=== PATIENT | female | born 1995 | race Caucasian/White ===

== ENCOUNTER → 2020-12-27 16:00 | Outpatient (BNVA) | payer BC, MEDICAID, SELFPAY | PROVIDERS: Visit Provider Obstetrics & Gynecology | DX: Z34.01 Encounter for supervision of normal first pregnancy, first trimester (principal) | CPT/HCPCS: 80307; 84315; 85027; 86592; 86762; 86787; 86803; 86850; 86900; 87086; 87340; 87389; 87806 ==

== ENCOUNTER → 2021-01-02 08:45 | Outpatient (BNVA) | payer BC, MEDICAID, SELFPAY | PROVIDERS: Visit Provider Obstetrics & Gynecology | DX: Z34.01 Encounter for supervision of normal first pregnancy, first trimester (principal); Z12.4 Encounter for screening for malignant neoplasm of cervix | CPT/HCPCS: 84315; 85027; 87491; 87591; 88175 ==

== ENCOUNTER → 2021-04-24 10:14 | Outpatient (BNVA) | payer BC, MEDICAID, SELFPAY | PROVIDERS: Visit Provider Obstetrics & Gynecology | DX: Z34.01 Encounter for supervision of normal first pregnancy, first trimester (principal) | CPT/HCPCS: 82950; 84315; 85027 ==

== ENCOUNTER → 2021-06-20 11:51 | Outpatient (BNVA) | payer BC, MEDICAID, SELFPAY | PROVIDERS: Visit Provider Obstetrics & Gynecology | DX: Z34.01 Encounter for supervision of normal first pregnancy, first trimester (principal) | CPT/HCPCS: 84315; 87081 ==

== ENCOUNTER 2021-07-09 03:41 | Inpatient (IN) | payer BC, MEDICAID, SELFPAY ==
[2021-07-09] VITALS (36 sets, daily range): BP systolic 112–148; BP diastolic 61–92; PULSE 54–99; RESP 16–18; TEMP 35.8–37; BMI 30.3
[2021-07-09] MEDS: lactated ringers 1,000 ML 999 ML IV (03:15)
[2021-07-09 03:33] LABS: Basophils % 0.3 %; Eosinophils # 0.1 10^3/uL (0.0-0.8); Eosinophils % 0.5 %; Hematocrit 37.9 % (37.0-47.0); Hemoglobin 12.7 g/dL (11.5-15.3); Lymphocytes # 2.3 10^3/uL (0.8-4.8); Lymphocytes % 16.5 %; Mean Corpuscular HGB Conc 33.5 g/dL (30.0-36.0); Mean Corpuscular Volume 92.4 fl (81-99); Mean Platelet Volume 10.5 fL (7.4-10.4); Monocytes # 0.7 10^3/uL (0.2-0.9); Monocytes % 5.2 %; Neutrophils # 10.56 10^3/uL (1.8-7.7); Neutrophils % 75.9 %; Nucleated Red Blood Cells % 0 %; Platelet Count 275 10^3/cmm (130-400); White Blood Count 13.9 10^3/uL (4.0-10.0)
[2021-07-09] MEDS: dextrose 5%-lactated ringers 1,000 ML 125 ML IV (03:58)
[2021-07-09] MEDS: lidocaine 2% INJ 20 mL INJECTION (04:45)
[2021-07-09] MEDS: oxytocin 30 UNIT/500 ML BAG 600 UNIT IV (04:52)
[2021-07-09] MEDS: fentaNYL 50 mcg/mL INJ 2mL IVP (04:55)
--- NOTE | 2021-07-09 05:12 | PM.OPHPUD ---
Labor & Delivery H&P Update Date of Procedure: July 09, 2021 Date H&P Performed: 07/04/21 H&P update information: I have reviewed H&P completed within last 30 days, I have examined patient prior to procedure and Changes to prior documentation as noted here Changes to previous documentation: The patient presented in active labor. cervix 5/100/0 with possible SROM earlier in the evening Admission Diagnosis: iup @ 38 weeks 6 days
--- NOTE | 2021-07-09 05:14 | PM.DELIVERY ---
Delivery Note: Date of delivery: July 09, 2021 Pre-delivery diagnoses: iup @ 38 weeks 6 days Post-delivery diagnoses: same- delivered Procedure: Op report anesthesia: None Delivering Physician: serjio Estimated blood loss (mL): 20 Findings: term male in the cephalic presentation Pre-Delivery Course: The patient presented in active labor. She intended to get an epidural, however, the labor progressed quickly and she had complete cervical dilation. She thought that she might have had SROM earlier in the evening while taking a bath. This was confirmed at complete cervical dilation Delivery: The patient had complete cervical dilation and began to push. The head delivered in the DEO position over a midline episiotomy under no anesthesia. The nose and mouth were bulb suctioned. The shoulders and body delivered atraumatically. The baby was placed onto the mother's abdomen. The cord was clamped and cut. Cord blood was obtained. The placenta delivered spontaneously. It was inspected and found to be intact. Inspection of the perineum revealed no extension of the episiotomy. The episiotomy was repaired in the usual fashion in 1 continuous stitch. Estimated blood loss 20 mL. Apgars on baby were 8 at 1 minute and 9 at 5 minutes. Weight of baby is 7 pounds 10 ounces. Mother and baby were stable post delivery. Coding Level of Care Code Acute Chip Frier for Berna Bryant
[2021-07-09] MEDS: docusate sodium 100 mg Capsule PO ×2 (08:57→19:05)
[2021-07-09] MEDS: benzocaine-menthol 78 gm Canister 1 SPRAY TOPICAL (08:58)
[2021-07-09] MEDS: lanolin oint 7 gm 1 APPLIC TOPICAL (08:58)
[2021-07-09] MEDS: prenatal vitamin Capsule 1 CAP PO (08:58)
[2021-07-09] MEDS: ibuprofen 800 mg tablet PO ×3 (08:58→22:08)
[2021-07-09 17:09] LABS: Hematocrit 33.3 % (37.0-47.0); Hemoglobin 11.5 g/dL (11.5-15.3); Mean Corpuscular HGB Conc 34.5 g/dL (30.0-36.0); Mean Corpuscular Hemoglobin 31.7 pg (28.0-34.0); Mean Corpuscular Volume 91.7 fl (81-99); Platelet Count 233 10^3/cmm (130-400); Red Blood Count 3.63 10^6/uL (4.1-5.3); Red Cell Distribution Width 13.2 % (12.1-15.1); White Blood Count 14.3 10^3/uL (4.0-10.0)
--- NOTE | 2021-07-09 18:40 | PC.NURSE ---
Sitz Bath Portable sitz bath given to pt upon request. Pt instructed on how to use it. Written instructions also given.
[2021-07-10] MEDS: docusate sodium 100 mg Capsule PO (10:43)
[2021-07-10] MEDS: ibuprofen 800 mg tablet PO (10:44)
[2021-07-10] MEDS: prenatal vitamin Capsule 1 CAP PO (10:44)
--- NOTE | 2021-07-10 12:36 | P.DS_ITS ---
Discharge Providers Date of Admission: 07/09/21 03:41 Date of Discharge: July 10, 2021 Attending Provider at Admission: Mary Ann Elizondo MD Attending Provider at Discharge: Mary Ann Elizondo MD Diagnoses at Discharge Discharge Diagnosis (1) state: Status: Acute Reason for Visit Reason for Visit: Contractions Hospital Course Hospital Course The patient was admitted in active labor. she had spontaneous deliver of a term . She did well and was read for discharge on day #1 Physical Exam Narrative: EXAM NARRATIVE: The patient is doing well this morning. No conc erns Const: COMMON NORMALS: no acute distress, average body habitus, patient oriented x3, no limitations, healthy appearing, alert and well nourished GENERAL APPEARANCE: cooperative, comfortable, well kempt and well developed ORIENTATION/CONSCIOUSNESS: Yes awake, Yes oriented to person, Yes oriented to place and Yes oriented to time Resp: COMMON NORMALS: normal respiratory effort EFFORT & INSPECTION: Yes able to speak in complete sentences GI: COMMON NORMALS: Soft to palpation and non-tender PALPATION: Yes Soft to palpation Extremity: COMMON NORMALS: no calf tenderness Neuro: COMMON NORMALS: patient oriented x3 SENSORIUM/ORIENTATION: Yes alert, Yes oriented to person, Yes oriented to place and Yes oriented to time Psych: APPEARANCE: Yes well kempt Discharge Data Data Completed and Pending: Labs from last 24 hours 07/09/21 16:45 WBC 14.3 H RBC 3.63 L Hgb 11.5 Hct 33.3 L MCV 91.7 MCH 31.7 MCHC 34.5 RDW 13.2 Plt Count 233 MPV 11.0 H Vitals: Last Vital Signs Temp 98.4 F 07/09/21 19:00 Pulse 90 07/09/21 22:11 Resp 16 07/09/21 19:00 BP 119/76 07/09/21 22:11 Discharge Plan Discharge Patient Disposition: Home Condition: Stable Prescriptions: Continued loratadine [Claritin] 10 mg tablet 10 mg PO DAILY RF: 0 prenat.vits,leo,lmo-satw-oltuf Tablet 1 tab PO DAILY RF: 0 Discharge Orders: Discharge Order (Routine); Ordered 07/10/21 Ordered By: Mary Ann Elizondo Patient Instructions: Depression (DC), Bleeding (DC), Preeclampsia and Eclampsia After Delivery (GEN), OB Discharge Report, OB Food/Drug Interaction Guide, Opioid Safety, OB Home Care, OB Vaginal Deliveries - [facility] Discharge Attestations Time Spent in Discharge Care*: less than 30 min Quality Metrics Clinical Quality Measures During this hospital stay, did patient experience: None Coding Level of Care Code Acute Chg FW DC note Diagnoses state Z39.2
[2021-07-10 13:08] VITALS: BP 117/76; PULSE 90
[2021-07-10 13:09] VITALS: TEMP 36.6
[2021-07-10 13:10] VITALS: BP 117/76; PULSE 90; RESP 16; TEMP 36.6
== END 2021-07-10 13:15 | disposition home or self-care (01) | DRG 807 ==
LOC: OPOB 03:45 → OBGYN 03:45
PROVIDERS: Admitting Provider Obstetrics & Gynecology; Visit Provider Obstetrics & Gynecology
DX: O80 Encounter for full-term uncomplicated delivery (principal); Z37.0 Single live birth; Z3A.38 38 weeks gestation of pregnancy; Z87.891 Personal history of nicotine dependence
CPT/HCPCS: 36415; 59025; 59409; 85025; 85027; 99211; J3010

== ENCOUNTER 2024-10-14 18:12 | Emergency (ER) | payer MEDICAID, SELFPAY ==
[2024-10-14 18:17] VITALS: BP 122/79; PULSE 95; RESP 14; TEMP 37.7; O2SAT 98; BMI 25.8
[2024-10-14 19:21] LABS: Basophils % 0.3 %; Eosinophils # 0.1 10^3/uL (0.0-0.8); Eosinophils % 0.8 %; Hematocrit 39.7 % (36-47); Lymphocytes # 1.5 10^3/uL (0.8-4.8); Lymphocytes % 25.7 %; Mean Corpuscular HGB Conc 33.2 g/dL (30-55); Mean Corpuscular Hemoglobin 30.8 pg (27-33); Mean Corpuscular Volume 92.5 fl (85-98); Mean Platelet Volume 9.1 fL (7.4-10.4); Monocytes # 0.5 10^3/uL (0.2-0.9); Monocytes % 8.7 %; Neutrophils # 3.81 10^3/uL (1.8-7.7); Neutrophils % 64.2 %; Nucleated Red Blood Cells % 0 %; Platelet Count 304 10^3/cmm (157-399); Red Blood Count 4.29 10^6/uL (3.85-5.65); Red Cell Distribution Width 12.2 % (12.1-15.1); White Blood Count 5.95 10^3/uL (3.29-11.43)
[2024-10-14 19:30] VITALS: BP 117/77; PULSE 86; O2SAT 100
[2024-10-14 19:37] LABS: Bilirubin Urine Negative (Negative); Blood Urine 2+ (Negative); Glucose Urine UA Negative (Normal); Ketones Urine 1+ (Negative); Leukocyte Esterase Urine Negative (Negative); Nitrate Urine Negative (Negative); Protein Urine Negative (Negative); Specific Gravity, Urine 1.014 (1.005-1.030); Urine Appearance Clear (CLEAR); Urine Color Yellow (Yellow); pH Urine 6.5 (5-7)
[2024-10-14 19:42] LABS: Add Urine Microscopic? YES; Bacteria Urine None Seen /hpf; Hyaline Casts Urine 0-4 /lpf; Squamous Epithelial Cell Urine 0-5 /hpf (0-5); WBC Urine 0-5 /hpf (0-5)
[2024-10-14 19:47] LABS: Add Urine Culture? Yes
[2024-10-14 19:48] LABS: Alanine Aminotransferase 11 U/L (0-33); Albumin Level 4.4 g/dL (3.5-5.2); Alkaline Phosphatase 158 U/L (35-105); Anion Gap 16.1 (5-19); Aspartate Amino Transferase 14 U/L (0-32); Blood Urea Nitrogen 10 mg/dL (6-20); Calcium 9.4 mg/dL (8.5-10.5); Carbon Dioxide 25 mmol/L (22-29); Chloride 99 mmol/L (98-107); Creatinine Clr Calc Pharmacy 107.7394; Globulin 3.6 g/dL (1.3-4.6); Glucose 86 mg/dL (65-115); Osmolality Calculated 280 mOsm/kg (285-295); Potassium 4.1 mmol/L (3.5-5.1); Sodium 136 mmol/L (136-145); Total Bilirubin 0.2 mg/dL (0.15-1.2)
[2024-10-14 20:02] VITALS: BP 118/75; PULSE 95; O2SAT 97
--- NOTE | 2024-10-14 20:08 | ED_ITS ---
HPI - Female Genitourinary 2 General: Chief complaint: Vaginal Bleeding Stated complaint: cramping spotting, early Time Seen by Provider: 10/14/24 18:44 History of Present Illness: Patient presents to the ER with complaints of vaginal spotting, cramping going on since last night. Patient does believe she is somewhere in the neighborhood of 4 to 8 weeks . Patient also had low-grade fever. Patient is no other complaints at this time. Related Data Previous Rx's Medication Instructions Recorded Sprintec (28) 0.25 mg-35 mcg 1 tab PO DAILY #56 tabs 11/20/21 tablet (norgestimate-ethinyl estradiol) Allergies Allergy/AdvReac Type Severity Reaction Status Date / Time No Known Allergies Allergy Verified 10/14/24 18:22 Review of Systems 2 General: Reports: 10 or more systems reviewed and unremarkable except in HPI and below PFSH ED 2 PFSH: Medical History No pertinent past medical history Denies diabetes, asthma, hypertension, seizures, DVT/PE PCP: Marta Lopez Surgical History No history of previous surgery Family History Father Hypertension Denies family history of Colon cancer Ovarian cancer Diabetes Heart disease Hypercholesteremia Breast cancer Uterine cancer Thyroid disease Stroke Physical Exam 2 Const: COMMON NORMALS: no acute distress, average body habitus, patient oriented x3, no limitations, healthy appearing, alert and well nourished HENMT: COMMON NORMALS: normocephalic, atraumatic, hearing grossly normal bilaterally, external ears normal, Normal external nose present and moist oral mucous membranes HEAD & SCALP: normocephalic and atraumatic NOSE: Normal external nose present EXTERNAL EAR: Yes external ears normal Neck/C-Spine: COMMON NORMALS: no JVD Chest: COMMONS NORMALS: normal inspection of the chest and normal palpation of entire chest wall Resp: COMMON NORMALS: normal respiratory effort, No retractions, No use of accessory muscles and clear to auscultation bilaterally AUSCULTATION: clear to auscultation bilaterally Cardio: COMMON NORMALS: no JVD, regular rate, regular rhythm, S1 normal heart sound present, S2 normal heart sound present, No gallops present (Cardio), No clicks present (Cardio), No murmurs present (Cardio) and No rub (Cardio) R ATE: regular rate RHYTHM: regular rhythm HEART SOUNDS: S1 normal heart sound present and S2 normal heart sound present GI: COMMON NORMALS: Normal to inspection, nondistended, normoactive bowel sounds present, Soft to palpation, non-tender, No hepatosplenomegaly present and no masses PALPATION: Yes Soft to palpation and Yes No hepatosplenomegaly present Neuro: COMMON NORMALS: patient oriented x3 SENSORIUM/ORIENTATION: Yes alert Course 2 Vital Signs: Vital signs: Vital Signs Temperature 99.9 F H 10/14/24 18:17 Pulse Rate 84 10/14/24 20:47 Respiratory Rate 14 10/14/24 18:17 Blood Pressure 116/81 10/14/24 20:47 Pulse Oximetry 97 10/14/24 20:47 Oxygen Delivery Me thod Room Air 10/14/24 18:17 MDM - Female Medical Decision Making OB ultrasound nondiagnostic, lab work unremarkable, quant BG 499, patient was instructed to follow-up for repeat blood draw in 48 to 72 hours. Medical Records I reviewed the patient's medical records. Lab Data I reviewed the patient's lab results. 10/14/24 19:07 10/14/24 19:07 Radiology Impressions Obstetrics Ultrasound 10/14/24 20:33 IMPRESSION: No definitive intrauterine gestational sac/ identified at this time. In the setting of a positive beta-hCG examination this may represent a that is too early to visualize or incorrect dating. Continued serial beta HCGs and ultrasounds are recommended. Laboratory Results WBC 5.95 10^3/uL (3.29-11.43) 10/14/24 19:07 RBC 4.29 10^6/uL (3.85-5.65) 10/14/24 19:07 Hgb 13.20 g/dL (11.27-16.99) 10/14/24 19:07 Hct 39.7 % (36-47) 10/14/24 19:07 MCV 92.5 fl (85-98) 10/14/24 19:07 MCH 30.8 pg (27-33) 10/14/24 19:07 MCHC 33.2 g/dL (30-55) 10/14/24 19:07 RDW 12.2 % (12.1-15.1) 10/14/24 19:07 Plt Count 304 10^3/cmm (157-399) 10/14/24 19:07 MPV 9.1 fL (7.4-10.4) 10/14/24 19:07 Neut % (Auto) 64.2 % 10/14/24 19:07 Lymph % (Auto) 25.7 % 10/14/24 19:07 [place] % (Auto) 8.7 % 10/14/24 19:07 Eos % (Auto) 0.8 % 10/14/24 19:07 Baso % (Auto) 0.3 % 10/14/24 19:07 Neut # (Auto) 3.81 10^3/uL (1.8-7.7) 10/14/24 19:07 Lymph # (Auto) 1.5 10^3/uL (0.8-4.8) 10/14/24 19:07 [place] # (Auto) 0.5 10^3/uL (0.2-0.9) 10/14/24 19:07 Eos # (Auto) 0.1 10^3/uL (0.0-0.8) 10/14/24 19:07 Baso # (Auto) 0.0 10^3/uL (0.0-0.1) 10/14/24 19:07 Nucleated RBC % (auto) 0 % 10/14/24 19:07 Nucleated RBCs # 0.0 /100WBC 10/14/24 19:07 Sodium 136 mmol/L (136-145) 10/14/24 19:07 Potassium 4.1 mmol/L (3.5-5.1) 10/14/24 19:07 Chloride 99 mmol/L (98-107) 10/14/24 19:07 Carbon Dioxide 25 mmol/L (22-29) 10/14/24 19:07 Anion Gap 16.1 (5-19) 10/14/24 19:07 BUN 10 mg/dL (6-20) 10/14/24 19:07 Creatinine 0.8 mg/dL (0.5-0.9) 10/14/24 19:07 GFR Calculation 86.0 mL/min (90-130) L 10/14/24 19:07 Glucose 86 mg/dL (65-115) 10/14/24 19:07 Calculated Osmolality 280 mOsm/kg (285-295) L 10/14/24 19:07 Calcium 9.4 mg/dL (8.5-10.5) 10/14/24 19:07 Total Bilirubin 0.2 mg/dL (0.15-1.2) 10/14/24 19:07 AST 14 U/L (0-32) 10/14/24 19:07 ALT 11 U/L (0-33) 10/14/24 19:07 Alkaline Phosphatase 158 U/L (35-105) H 10/14/24 19:07 Total Protein 8.0 g/dL (6.6-8.7) 10/14/24 19: Albumin 4.4 g/dL (3.5-5.2) 10/14/24 19:07 Globulin 3.6 g/dL (1.3-4.6) 10/14/24 19:07 Ser , Semi-Qnt 499.90 mIU/mL 10/14/24 19: Urine Color Yellow (Yellow) 10/14/24: Urine Appearance Clear (CLEAR) 10/14/24: Urine pH 6.5 (5-7) 10/14/24: Ur Specific [place] 1.014 (1.005-1.030) 10/14/24: Urine Protein Negative (Negative) 10/14/24: Urine Glucose (UA) Negative (Normal) 10/14/24: Urine Ketones 1+ (Negative) H 10/14/24: Urine Blood 2+ (Negative) A 10/14/24: Urine Nitrate Negative (Negative) 10/14/24: Urine Bilirubin Negative (Negative) 10/14/24: Urine Urobilinogen 1.0 mg/dL (Negative) 10/14/24: Ur Leukocyte Esterase Negative (Negative) 10/14/24 19: Urine RBC 11-20 /hpf (0-2) H 10/14/24 19: Urine WBC 0-5 /hpf (0-5) 10/14/24: Ur Squamous Epith Cells 0-5 /hpf (0-5) 10/14/24 19:29 Amorphous Sediment Not Reportable 10/14/24 19:29 Urine Bacteria None seen /hpf (NONE) 10/14/24 19:29 Hyaline Casts 0-4 /lpf H 10/14/24 19:29 All radiology interpretation(s) finalized by discharge Discharge Plan Discharge Patient Disposition: Home Clinical Impression: Vaginal bleeding Qualifiers: Weeks of gestation: less than 8 weeks Qualified Code(s): Z3A.01 - Less than 8 weeks gestation of Condition: Stable Prescriptions: No Action norgestimate-ethinyl estradiol [Sprintec (28)] 0.25-35 mg-mcg tablet 1 tab PO DAILY Qty: 56 4RF Discharge Orders: Discharge ED (Routine); Ordered 10/14/24 Ordered By: Iain Harrison Patient Instructions: (ED) Activity Restrictions/Additional Instructions: Your quantitative beta-hCG in the ER was 499. Please follow-up and have this redrawn in 48 to 72 hours as it should increase with a good . The ultrasound was nondiagnostic which may just be too early to see anything. Coding Level of Care Code ED Foreign Banknote Teller Trader for Berna Bryant
--- NOTE | 2024-10-14 20:33 | USR_ITS ---
PROCEDURE INFORMATION: Exam: US , Limited Exam date and time: 10/14/2024 8:47 PM Age: 29 years old Clinical indication: Lmp or gestational age (in weeks): 7w 2 d by lmp; Antepartum complications; ; G2-p1-a0-l1 with lmp 08/24/2024 7w 2d presenting with cramping and vaginal bleeding. ; Additional info: Positive , vaginal bleeding LABS AND CLINICAL REPORTS: Choriogonadotropin in serum (Serum HCG): 499 mIU/mL Last menstrual period start date: 08/24/2024 Gestational age (Established): 7 w 2 d Estimated due date (Established): 05/31/2025 TECHNIQUE: Imaging protocol: Real-time ultrasound of the maternal uterus with image documentation. Exam focused on the clinical indication. COMPARISON: US OB transvaginal CC 03/01/2021 9:55 AM FINDINGS: Last menstrual period: Estimated age by last menstrual period is 7 weeks and 2 days. Gestation: No definitive intrauterine can be identified at this time. MATERNAL: Uterus: Uterus measures 9 cm x 6.06 cm x 4.31 cm. The uterus is retroflexed. The uterus measures 9.0 x 6.1 x 4.3 cm. Endometrial thickness is 1.1 cm. Right ovary/adnexa: Right ovary measures 3.2 cm x 1.6 cm x 2.2 cm. Right ovarian volume is 5.8 mL. The right ovary is normal. Left ovary/adnexa: Left ovary measures 2 cm x 2.8 cm x 1.5 cm. Left ovarian volume is 4.3 mL. The left ovary is normal. US/US OB limited [id number] IMPRESSION: No definitive intrauterine gestational sac/ identified at this time. In the setting of a positive beta-hCG examination this may represent a that is too early to visualize or incorrect dating. Continued serial beta HCGs and ultrasounds are recommended.
[2024-10-14 20:47] VITALS: BP 116/81; PULSE 84; O2SAT 97
[2024-10-14 21:46] VITALS: BP 122/78; PULSE 104; O2SAT 97
== END 2024-10-14 21:50 | disposition home or self-care (01) ==
PROVIDERS: Emergency Provider Emergency Medicine
DX: O20.9 Hemorrhage in early pregnancy, unspecified (principal); Z3A.01 Less than 8 weeks gestation of pregnancy
CPT/HCPCS: 36415; 76815; 80053; 81001; 84702; 85025; 87086; 99284

== ENCOUNTER 2025-06-09 13:03 | Emergency (ER) | payer MEDICAID, SELFPAY ==
[2025-06-09 13:08] VITALS: BP 116/78; PULSE 88; TEMP 36.7; O2SAT 97
--- NOTE | 2025-06-09 14:26 | ED_ITS ---
HPI - Female Genitourinary General: Chief complaint: Urogenital-Female Stated complaint: 12 weeks preg feels like Cervix dropped Sharp Pain Time Seen by Provider: 06/09/25 13:24 History of Present Illness: 29-year-old G3, P1 SAB 1 female at [facility] ximately 11 to 12 weeks gestation she concerned that her cervix dropped. She thought she felt a cervix at the vaginal introitus. She has not had any vaginal bleeding or discharge no dysuria urgency or frequency. No other symptoms. Associated symptoms: Deny abdominal pain Related Data Home Medications ?Medication ?Instructions ?Recorded ?Confirmed doxylamine succinate 25 mg tablet 25 mg PO Q6H PRN Luis sea 06/09/25 06/09/25 (Unisom (doxylamine)) vits 26-iron ps 29 mg 1 cap PO QPM 06/09/25 0 06/09/25 iron-folic acid 1 mg-dha 200 mg capsule pyridoxine (vitamin B6) 50 mg 50 mg PO QPM 06/09/25 capsule (Vitamin B-6) Allergies Allergy/AdvReac Type Severity Reaction Status Date / Time No Known Allergies Allergy Verified 06/09/25 13:15 Review of Systems Const: Denies: fever(s) or chills Card: Denies: chest pain Resp: Denies: dyspnea GI: Denies: abdominal pain : Denies: dysuria, urinary frequency or urinary urgency Musc: Denies: neck pain or back pain Skin/Breast: Denies: rash PFSH ED PFSH: Medical History No pertinent past medical history Denies diabetes, asthma, hypertension, seizures, DVT/PE PCP: Marta Lopez Surgical History No history of previous surgery Family History Father Hypertension Denies family history of Colon cancer Ovarian cancer Diabetes Heart disease Hypercholesteremia Breast cancer Uterine cancer Thyroid disease Stroke Physical Exam Const: GENERAL APPEARANCE: cooperative ORIENTATION/CONSCIOUSNESS: Yes awake, Yes oriented to person, Yes oriented to place and Yes oriented to time HENMT: COMMON NORMALS: normocephalic, atraumatic and hearing grossly normal bilaterally HEAD & SCALP: normocephalic and atraumatic Resp: COMMON NORMALS: normal respiratory effort, No retractions, No use of accessory muscles and clear to auscultation bilaterally AUSCULTATION: clear to auscultation bilaterally Cardio: COMMON NORMALS: regular rate, regular rhythm and No murmurs present (Cardio) RATE: regular rate RHYTHM: regular rhythm GI: COMMON NORMALS: Soft to palpation and No hepatosplenomegaly present AUSCULTATION: Yes normoactive bowel sounds PALPATION: Yes Soft to palpation, No Tenderness to palpation present (GI), No Guarding due to palpation present (GI) and Yes No hepatosplenomegaly present : OTHER: Pelvic exam with nurse present patient placed in dorsolithotomy position examination at the vaginal introitus there is no evidence of uterine prolapse. Extremity: COMMON NORMALS: normal to inspection, capillary refill normal, no clubbing, cyanosis or edema, no calf tenderness and no pedal edema Neuro: SENSORIUM/ORIENTATION: Yes oriented to person, Yes oriented to place and Yes oriented to time Skin: COMMON NORMALS: no rashes or lesions noted GENERAL SKIN EXAM: no rashes or lesions noted Course Vital Signs: Vital signs: Vital Signs Temperature 98.1 F 06/09/25 13:08 Pulse Rate 72 06/09/25 14:43 Respiratory Rate 16 06/09/25 14:43 Blood Pressure 128/76 06/09/25 14:43 Pulse Oximetry 98 06/09/25 14:43 Oxygen Delivery Me thod Room Air 06/09/25 13:08 MDM - Female Medical Decision Making Discussed with patient no significant findings heart tones were normal in the 150s. No sign of uterine prolapse no signs of vaginal bleeding or vaginal discharge. Recommend follow-up with her OB for establishment appointment. Return if she has further problems Medical Records I reviewed the patient's medical records. Lab Data I reviewed the patient's lab results. Laboratory Results Urine Color Yellow (Yellow) 06/09/25 13:57 Urine Appearance Clear (CLEAR) 06/09/25 13:57 Urine pH 6.0 (5-7) 06/09/25 13:57 Ur Specific [place] 1.013 (1.005-1.030) 06/09/25 13:57 Urine Protein Negative (Negative) 06/09/25 13:57 Urine Glucose (UA) Negative (Normal) 06/09/25 13:57 Urine Ketones Negative (Negative) 06/09/25 13:57 Urine Blood Negative (Negative) 06/09/25 13:57 Urine Nitrate Negative (Negative) 06/09/25 13:57 Urine Bilirubin Negative (Negative) 06/09/25 13:57 Urine Urobilinogen 1.0 mg/dL (Negative) 06/09/25 13:57 Ur Leukocyte Esterase Negative (Negative) 06/09/25 13:57 Urine RBC 0-2 /hpf (0-2) 06/09/25 13:57 Urine WBC 0-5 /hpf (0-5) 06/09/25 13:57 Ur Squamous Epith Cells 0-5 /hpf (0-5) 06/09/25 13:57 Amorphous Sediment Not Reportable 06/09/25 13:57 Urine Bacteria None seen /hpf (NONE) 06/09/25 13:57 Hyaline Casts 0.81 /lpf 06/09/25 13:57 No radiology studies performed this visit Discharge Plan Discharge Patient Disposition: Home Clinical Impression: First trimester , Pelvic pain in Condition: Stable Prescriptions: No Action Unisom (doxylamine) 25 mg Tablet 25 mg PO Q6H PRN (Reason: Nausea) 26-iron [id number] 29 mg iron- 1 mg-200 mg Capsule 1 cap PO QPM Vitamin B-6 50 mg Capsule 50 mg PO QPM Discharge Orders: Discharge ED (Routine); Ordered 06/09/25 Ordered By: Darek Hoyt Discharge Diet: Usual diet Discharge Activity: Resume usual activity Patient Instructions: Opioid Safety, Pain Management, Patient Portal & Angus Instructions Activity Restrictions/Additional Instructions: Thank you for choosing [facility] for your healthcare needs today. It is very important that you follow up as instructed or that you return to the Emergency Department should you have concerns or if your condition changes or worsens in any way. Emergency department visits are focused on emergent conditions, in some cases you may require further evaluation on an outpatient basis. You were seen in the emergency room with complaints of pelvic discomfort and concerned about prolapse of these uterus. On exam there is no evidence of prolapse your heart tones were normal urine was also normal. Follow-up with your scheduled OB appointment. Return if you have further problems. (Please note that included in your discharge packet is information concerning opioid safety and pain management. This information is given to all patients were discharged from the ER regardless of their discharge diagnosis or the medicines they usually take or are prescribed.) Print Language: [place] Coding Level of Care Code ED Technical Specialist for Berna Bryant
[2025-06-09 14:27] LABS: Glucose Urine UA Negative (Normal); Nitrate Urine Negative (Negative); Specific Gravity, Urine 1.013 (1.005-1.030)
[2025-06-09 14:32] LABS: Add Urine Microscopic? YES
[2025-06-09 14:43] VITALS: BP 128/76; PULSE 72; RESP 16; O2SAT 98
== END 2025-06-09 14:43 | disposition home or self-care (01) ==
PROVIDERS: Emergency Provider Family Medicine
DX: O26.891 Other specified pregnancy related conditions, first trimester (principal); Z3A.12 12 weeks gestation of pregnancy; R10.2 Pelvic and perineal pain
CPT/HCPCS: 81001; 99283